=== PATIENT | female | born 1990 | race Asian ===

== ENCOUNTER 2017-11-10 00:09 | Inpatient (IN) | payer OTHER ==
[~2017-11-10] VITALS: Ht 152.4 cm; Wt 73.5 kg
[2017-11-10 00:20] VITALS: BP 120/68
[2017-11-10 01:07] LABS: ABSOLUTE BASOPHIL COUNT 0 /CUMM (0.0-0.2); ABSOLUTE EOSINOPHIL COUNT 0 /CUMM (0.0-0.7); ABSOLUTE GRANULOCYTE CT 6.9 /CUMM (1.4-6.5); ABSOLUTE LYMPH COUNT 1.5 /CUMM (1.2-3.4); ABSOLUTE MONOCYTE COUNT 0.7 /CUMM (0.10-0.60); BASOPHIL % 0.1 % (0.0-2.0); EOSINOPHIL % 0.4 % (0-5); GRANULOCYTE % 74.9 % (42.2-75.2); HEMATOCRIT 33.3 % (37-47); MEAN CORPUSCULAR HGB 32.3 PG (27.0-31.0); MEAN CORPUSCULAR HGB CONC 34.9 G/DL (33.0-37.0); MEAN CORPUSCULAR VOLUME 92.3 FL (81.0-99.0); MEAN PLATELET VOLUME 10.4 FL (7.4-10.4); PLATELET COUNT 142 /CUMM (130-400); RBC DISTRIBUTION WIDTH 12.6 % (11.5-14.5); RED BLOOD CELL CT 3.61 /CUMM (4.20-5.40); WHITE BLOOD CELL COUNT 9.2 /CUMM (4.8-10.8)
--- NOTE | 2017-11-10 02:01 | History & Physical Pre-Op ---
General Information and HPI MD Statement: I have seen and personally examined HERMES BATISTA and documented this H&P. The patient is a 27 year old F who presented with a patient stated chief complaint of lABOR [id number] Source of Information: family, old records Exam Limitations: language barrier History of Present Illness: Pt well known to ob practice presented 6 cm dilated with Funic presentation ruptrured with thick meconium FHR deep variables with UC's otherwise FHR 140's with good variability code 5 called taken back to OR after prep and instrument count. Allergies/Medications Allergies: Coded Allergies: No Known Allergies (11/10/17) Compliance With Home Meds: GOOD Past History Medical History Isolation History: Standard Surgical History Pertinent Surgical History: none Past Family/Social History Psychosocial History Smoking Status: Never Smoked Review of Systems Review of Systems Constitutional: Reports: no symptoms. Denies: chills, fever. EENTM: Denies: blurred vision, double vision, visual changes. Cardiovascular: Denies: chest pain. Respiratory: Denies: short of breath. GI: Denies: diarrhea, nausea, vomiting. Exam & Diagnostic Data Last 24 Hrs of Vital Signs/I&O vss Vital Signs Date Time Temp Pulse Resp B/P B/P Pulse O2 O2 Flow FiO2 Mean Ox Delivery Rate 11/10 0020 120/68 Intake & Output 11/10 0800 11/10 0000 11/09 1600 Intake Total Output Total Balance Patient 162 lb Weight Physical Exam General Appearance Alert, Oriented X3, Moderate Distress Skin No Rashes HEENT Atraumatic, PERRLA, EOMI, Mucous Membr. moist/pink Neck Supple Cardiovascular Regular Rate Lungs Clear to Auscultation Abdomen Normal Bowel Sounds, Soft, No Tenderness, gravid 40cm Extremities No Edema Last 24 Hrs of Labs/Andre: Laboratory Tests 11/10/17 0015: CBC w Diff NO MAN DIFF REQ, RBC 3.61 L, MCV 92.3, MCH 32.3 H, MCHC 34.9, RDW 12.6, MPV 10.4, Gran % 74.9, Lymphocytes % 16.7 L, Monocytes % 7.9, Eosinophils % 0.4, Basophils % 0.1, Absolute Granulocytes 6.9 H, Absolute Lymphocytes 1.5, Absolute Monocytes 0.7 H, Absolute Eosinophils 0, Absolute Basophils 0 Assessment/Plan Assessment/Plan: Pt well known to ob practice presented 6 cm dilated with Funic presentation ruptrured with thick meconium FHR deep variables with UC's otherwise FHR 140's with good variability code 5 called taken back to OR after prep and instrument count. As Ranked By This Provider Problem List: 1. Funic presentation 2. Attending MD Review Statement Attending Statement Attending MD Statement: examined this patient, discussed with family, discussed w/nursing
--- NOTE | 2017-11-10 02:03 | Labor & Delivery Summary ---
Delivery Summary Section: Section: primary Indication: Funic presentation Anesthesia: general Placenta: Placenta: spontanteous, normal, 3 vessel Anesthesia: general endotracheal tube Cord PH Value: 7.31 Baby's Weight: 8 lbs Apgars - 1 Min: 9 Apgars - 5 Min: 9 Additional Comments: Code 5 controlled delivery peds in attendance
[2017-11-10 09:14] LABS: ABSOLUTE BASOPHIL COUNT 0 /CUMM (0.0-0.2); ABSOLUTE EOSINOPHIL COUNT 0 /CUMM (0.0-0.7); ABSOLUTE MONOCYTE COUNT 0.5 /CUMM (0.10-0.60); BASOPHIL % 0.1 % (0.0-2.0); EOSINOPHIL % 0 % (0-5); MEAN PLATELET VOLUME 10.6 FL (7.4-10.4)
[2017-11-10 09:17] LABS: ABSOLUTE GRANULOCYTE CT 13.3 /CUMM (1.4-6.5); ABSOLUTE LYMPH COUNT 0.7 /CUMM (1.2-3.4); HEMATOCRIT 29.6 % (37-47); MEAN CORPUSCULAR HGB 32.1 PG (27.0-31.0); MEAN CORPUSCULAR HGB CONC 34.1 G/DL (33.0-37.0); MEAN CORPUSCULAR VOLUME 94.2 FL (81.0-99.0); PLATELET COUNT 133 /CUMM (130-400); RED BLOOD CELL CT 3.14 /CUMM (4.20-5.40)
--- NOTE | 2017-11-10 09:23 | PN- OBGYN ---
Surgical Brief Attending Note Brief Attending Note: POD#0 pt is resting in bed, no complaints, pain is controlled by KNIFE SETTER GRINDER MACHINE, denies nausea, vomitting , lawrence in place, clear urine PE: VSS General: NAD CV RRR lungs CTA B/L Abdomen; soft, mild tender at incision site, uterus firm, fundus at umbilicus, incision dressing blood stained, dry/intact. lochia mild Ext: venodyn boots placed, DCT (-) A/P: 27yo, s/p stat PLTCS due to funic presentation,POD#0 1. may start clear liquid diet if no nausea, vomitting 2. pain management as needed 3.RT Postop care
[2017-11-10 09:26] LABS: WHITE BLOOD CELL COUNT 14.6 /CUMM (4.8-10.8)
[2017-11-10 10:17] LABS: GRANULOCYTE % 91.2 % (42.2-75.2)
[2017-11-11 08:26] LABS: ABSOLUTE BASOPHIL COUNT 0 /CUMM (0.0-0.2); ABSOLUTE EOSINOPHIL COUNT 0 /CUMM (0.0-0.7); ABSOLUTE GRANULOCYTE CT 5.8 /CUMM (1.4-6.5); ABSOLUTE LYMPH COUNT 1.3 /CUMM (1.2-3.4); ABSOLUTE MONOCYTE COUNT 0.6 /CUMM (0.10-0.60); BASOPHIL % 0.3 % (0.0-2.0); EOSINOPHIL % 0.3 % (0-5); GRANULOCYTE % 75.3 % (42.2-75.2); MEAN CORPUSCULAR HGB CONC 34.2 G/DL (33.0-37.0); MEAN CORPUSCULAR VOLUME 93.4 FL (81.0-99.0); MEAN PLATELET VOLUME 10.2 FL (7.4-10.4); PLATELET COUNT 128 /CUMM (130-400); RBC DISTRIBUTION WIDTH 13.1 % (11.5-14.5); RED BLOOD CELL CT 2.53 /CUMM (4.20-5.40); WHITE BLOOD CELL COUNT 7.7 /CUMM (4.8-10.8)
[2017-11-11 08:32] LABS: HEMATOCRIT 23.6 % (37-47)
--- NOTE | 2017-11-11 10:06 | PN- Post Delivery/GYN ---
Subjective Subjective: feeling well Review of Systems Constitutional: Denies: chills, fever. EENTM: Denies: blurred vision, double vision, visual changes. Cardiovascular: Denies: chest pain. Respiratory: Denies: short of breath. Gastrointestinal: Denies: diarrhea, nausea, vomiting. Neurological/Psychological: Denies: anxiety, depressed. Objective Last 24 Hrs of Vital Signs/I&O vss Vital Signs Date Time Temp Pulse Resp B/P B/P Pulse O2 O2 Flow FiO2 Mean Ox Delivery Rate 11/10 1411 Room Air Room Air Physical Exam General Appearance Alert, Oriented X3, Cooperative, No Acute Distress Cardiovascular Regular Rate Lungs Clear to Auscultation Abdomen Soft, fundus firm, incision clean and dry Pelvic (FEMALE) lochia serosanganous Current Medications: Current Medications Sig/Ana Maria Start time Last Medication Dose Route Stop Time Status Admin Acetaminophen 1,000 MG Q6P PRN 11/10 0300 AC 11/10 N/A 1 UNIT IV 0145 Acetaminophen 650 MG Q4P PRN 11/10 021 AC PO Diphenhydramine HCl 50 MG Q6P PRN 11/10 021 AC IM Docusate Sodium 100 MG AT BEDTIME PRN 11/10 021 AC PO Enoxaparin Sodium 40 MG DAILY 11/10 1000 AC 11/11 SC 0911 Hydromorphone HCl 50 MG Q24H PRN 11/10 0300 DC 11/10 Sodium Chloride 45 ML IV 0331 Hydroxyzine HCl 50 MG AT BEDTIME NEED.. 11/11 0000 AC PO Ibuprofen 600 MG Q6P PRN 11/10 021 AC PO Ibuprofen 800 MG Q6P PRN 11/10 0215 AC 11/11 PO 0735 Ketorolac 30 MG Q6P PRN 11/10 0300 DC 11/10 Tromethamine IV 11/11 0259 1416 Lactated Ringer's 1,000 ML Q8H 11/10 021 DC 11/10 IV 0838 Magnesium Hydroxide 30 ML DAILY NEEDED PRN 11/10 021 AC PO Naloxone HCl 0.2 MG .[STAT] 11/10 021 AC IV Oxycodone/ 1 TAB Q4P PRN 11/10 021 AC 11/11 Acetaminophen PO 0632 Oxycodone/ 2 TAB Q4P PRN 11/10 021 AC Acetaminophen PO Oxytocin 20 UNITS Q8H 11/10 0215 DC 11/10 Lactated Ringer's 1,000 ML IV 11/10 1014 0200 Promethazine HCl 25 MG Q4P PRN 11/10 021 DC IM 11/11 021 Promethazine HCl 50 MG Q4P PRN 11/10 0215 DC IM 11/11 021 Simethicone 80 MG Q6P PRN 11/10 1245 AC 11/10 PO 1237 Last 24 Hrs of Labs/Andre: Laboratory Tests 11/11/17 0630: CBC w Diff NO MAN DIFF REQ, RBC 2.53 L, MCV 93.4, MCH 32.0 H, MCHC 34.2, RDW 13.1, MPV 10.2, Gran % 75.3 H, Lymphocytes % 16.7 L, Monocytes % 7.4, Eosinophils % 0.3, Basophils % 0.3, Absolute Granulocytes 5.8, Absolute Lymphocytes 1.3, Absolute Monocytes 0.6, Absolute Eosinophils 0, Absolute Basophils 0 11/11/17 0600: Kleihauer Cells Cancelled Assessment/Plan Assessment/Plan POD #1 VSS afebrile HCT 23.6 pt asymptomatic with no further bleeding Plan ambulate advance diet. Problem List: 1. 2. Funic presentation Attending MD Review Statement Attending Statement Attending MD Statement: examined this patient, discussed with family, discussed with nursing
--- NOTE | 2017-11-12 07:50 | Operative Report ---
Operative/Inv Procedure Report Surgery Date: 11/10/17 Name of Procedure: Primary low transverse section Pre-Operative Diagnosis: Fundic presentation Post-Operative Diagnosis: Same Estimated Blood Loss: 800 Surgeon/Outside Rigger: Maximus ROSADO,Raad Uriostegui/Sammy Flood MD Anesthesia: general endotracheal tube Specimens: placenta Condition: Good Operative Indication: Funic presentation Operative/Procedure Note Note: Prior tor the induction of general anesthesia the patient was placed in the left lateral tilt position Man catheter was placed and heart rate was noted to be 144 bpm. once general anesthesia was induced A Pfannenstiel incision was made in the skin and carried down sharply to the fascia hemostasis was achieved with electrocautery. The Fascia was incised in the midline sharply and the incision was carried out laterally sharply. The fascia was divided from the underlying rectus muscles in the superior and inferior direction sharply. The rectus muscle bundles were divided in the midline sharply. A bladder flap was created on the lower uterine segment. The lower uterine segment was entered in the midline sharply and the incision was carried out laterally bluntly. was delivered through thick meconium amnionic fluid vertex position atraumatically cord was doubly clamped and cut and the infant was handed to the pediatric attendant. The placenta was manually extracted and the interior of the uterus was wiped clean with wet laps. The uterus was externalized. The uterine incision was closed in 2 layers the first a running locking stitch the second an imbricating over the first 0 Polysorb sutures were used after checking for hemostasis the uterus was returned to its normal anatomic position the abdominal/perineal cavity was irrigated copiously once again the uterus was checked for hemostasis which was judged to be excellent. The parietal peritoneum was reapproximated in a simple running fashion with 0 Polysorb suture, subfascial planes were checked for hemostasis which was judged to be excellent. Fascia was then closed with 2 simple running sutures overlapping in the midline. Subcuticular tissues were irrigated copiously and hemostasis was achieved with electrocautery. A subcuticular Jacqueline's fascia which was placed in a simple running fashion of 2-0 Polysorb. The skin was closed with katelin. Her uterus was expressed of a small amount of blood. The only drain left at the end of the procedure was a Man catheter. Findings: Normal anatomy
--- NOTE | 2017-11-12 10:59 | PN- OBGYN ---
Surgical Brief Attending Note Brief Attending Note: pt feeling better today. pain improving. amb / void/ amie po. +flatus. +bf. no dizziness / riley / sob. afeb, v/ss nad abd soft nt nd ff inc c/d/i w/ clips sissy min lochia ext nt tr b/l le ed a/p pod 2 s/p prim c/s for funich presentation, doing well, asymptomatic anemia -start fe tid -pain mgmt -routine pop care -ant d/c home joselito
[2017-11-12] MEDS ORDERED: FERROUS SULFAT325 M2 PO (14:46)
[2017-11-12] MEDS ORDERED: IBUPROFEN800 M1 PO (14:46)
[2017-11-12] MEDS ORDERED: PERCOCET 5-3251 EACH PO (14:46)
--- NOTE | 2017-11-13 11:04 | PN- OBGYN ---
Surgical Brief Attending Note Brief Attending Note: pt feeling well. no c/o. no dizziness / riley / sob. amb / void / amie po. + br pumping. afeb, vss. abd soft nt ff, inc c/d/i w/ clips. sissy min lochia. ext nt +1 b/l le edema. pod 3 s/p c/s, doing well. anemia. pt prefers katelin to be removed pod5 when returns to for f/u. d/c instructions rev. rto 2 wks post-op care.
== END 2017-11-13 15:15 | DRG 766 ==
LOC: GNO 00:09
PROVIDERS: Obstetrics & Gynecology
PROC: 10D00Z1 Extraction of Products of Conception, Low, Open Approach (ICD-10-PCS; principal; 2017-11-10)
DX: O32.8XX0 Maternal care for other malpresentation of fetus, not applicable or unspecified (principal); O76 Abnormality in fetal heart rate and rhythm complicating labor and delivery; O90.81 Anemia of the puerperium; Z3A.41 41 weeks gestation of pregnancy; Z37.0 Single live birth
CPT/HCPCS: GNOS; 36415; 81001; 87086; 88307; J0690; J1170; J1650; J1885; J2210; J3105; J7120

== ENCOUNTER 2018-03-06 19:48 | Emergency (ER) | payer OTHER ==
[~2018-03-06 19:48] MED LIST: FERROUS SULFAT325 M2 PO; IBUPROFEN800 M1 PO; PERCOCET 5-3251 EACH PO
[2018-03-06 19:55] VITALS: BP 101/67
[2018-03-06] MEDS ORDERED: AMOXICILLIN875 M1 PO (22:31)
[2018-03-06] MEDS ORDERED: IBUPROFEN800 M1 PO (22:31)
--- NOTE | 2018-03-06 22:32 | ED THROAT/DENTAL COMPLAINT ---
History of Present Illness General Chief Complaint: Sore Throat, Dental Pain Stated Complaint: "LT JAW SWOLLEN PAINFULL FROM DENTAL WORK" Source: patient Exam Limitations: no limitations Vital Signs & Intake/Output Vital Signs & Intake/Output Vital Signs Date Time Temp Pulse Resp B/P B/P Pulse O2 O2 Flow FiO2 Mean Ox Delivery Rate 03/06 2329 98 Room Air 03/06 1955 98.4 57 16 101/67 99 Room Air ED Intake and Output 03/07 0000 03/06 1200 Intake Total 0 Output Total Balance 0 Intake, IV 0 Allergies Coded Allergies: No Known Allergies (11/10/17) Reconcile Medications Amoxicillin 875 MG TABLET 1 TAB PO BID DENTAL INFECTION Ferrous Sulfate 325 MG (65 MG IRON) TABLET.DR 325 MG PO TID ANEMIA Ibuprofen 800 MG TABLET 1 TAB PO TID PAIN Ibuprofen 800 MG TABLET 800 MG PO Q6P PRN UTERINE CRAMPING Oxycodone HCl/Acetaminophen (Percocet 5-325 MG Tablet) 5 MG-325 MG TABLET 2 TAB PO Q4P PRN PAIN SCALE 7-10 (SEVERE) Triage Note: PT TO TRIAGE C/O DENTAL PAIN, L CHEEK SWELLING S/P CROWN PLACEMENT DONE ON WEDNESDAY. Triage Nurses Notes Reviewed? yes Onset: Abrupt Duration: day(s): Timing: recent history Injury Environment: home : No Patient currently breastfeeds: Yes HPI: 27-year-old female comes into the emergency room with left upper dental pain and facial swelling. Patient had a crown placed earlier this week. Sharp throbbing pain. Continuous. No fever or vomiting. Comes in for further evaluation. (Murphy Russo) Past History Travel History Traveled to [place] past 21 day No Medical History Any Pertinent Medical History? see below for history Neurological: NONE EENT: NONE Cardiovascular: NONE Respiratory: NONE Gastrointestinal: NONE Hepatic: NONE Renal: NONE Musculoskeletal: NONE Psychiatric: NONE Endocrine: NONE Blood Disorders: NONE Cancer(s): NONE TRAINING PROFESSIONAL/Reproductive: NONE Surgical History Surgical History: none Psychosocial History What is your primary language Panamanian Tobacco Use: Never used Family History Hx Contributory? No (Murphy Russo) Review of Systems Review of Systems Constitutional: Reports: no symptoms. EENTM: Reports: see HPI. Respiratory: Reports: no symptoms. Cardiovascular: Reports: no symptoms. GI: Reports: no symptoms. Genitourinary: Reports: no symptoms. Musculoskeletal: Reports: no symptoms. Skin: Reports: no symptoms. Neurological/Psychological: Reports: no symptoms. Hematologic/Endocrine: Reports: no symptoms. Immunologic/Allergic: Reports: no symptoms. All Other Systems: Reviewed and Negative (Murphy Russo) Physical Exam Physical Exam General Appearance: well developed/nourished, no apparent distress, alert, awake Head: swelling (left face) Eyes: Bilateral: normal appearance. Nose: normal inspection Mouth/Throat: swelling left upper gumline, no abscess palpated or appreciated, tenderness with palpation to left upper molar Neck: normal inspection Cardiovascular/Respiratory: no respiratory distress Back: normal inspection Neurologic/Psych: no motor/sensory deficits, awake, alert Skin: intact, normal color Core Measures ACS in differential dx? No Sepsis Present: No Sepsis Focused Exam Completed? No (Murphy Russo) Progress Differential Diagnosis: aspirated tooth, carious tooth, epiglottitis, Ludwigs angina, meningitis, odontogenic abscess, sissy-tonsillar abscess, pharyngeal for. body, stomatitis/gingivitis, strep pharyngitis, tooth fracture Plan of Care: 03/06/2018 11:08:00 PM There is no evidence of abscess on exam however suspicion suspected. Started on oral antibiotics and referred to dentist. Return if any other concerns. (Murphy Russo) Departure Departure Disposition: HOME OR SELF CARE Condition: Stable Clinical Impression Primary Impression: Dental infection Referrals: Patient Has No Primary Care Dr (PCP/Family) Additional Instructions: Take amoxicillin and ibuprofen as prescribed. Follow-up with primary care doctor. Return if any concerns worsening symptoms. Please go over all results of today's visit with your primary care doctor. Contact your primary care doctor to let them know you were here in the emergency room. There may be nonspecific findings which may not be related to your visit today here in the emergency room but may require further evaluation and chronic monitoring by your primary care doctor. If you had a laceration today the chance of foreign body always remains. You should follow-up with your primary care doctor for recheck in 3-5 days for a wound check. If you had an x-ray done there is a chance that a fracture could have been missed on initial read and you should follow-up with your primary care doctor for repeat x-rays if symptoms persist. If your blood pressure was elevated here in the emergency room please have rechecked by [facility] primary care doctor within the next 48. If you were prescribed a narcotic here in the emergency room or any type of controlled substances you're not allowed to drive while taking this medication or operate any type of heavy machinery. Narcotics can make you feel lightheaded dizziness nausea and can cause constipation. You may need to pick up worker a stool softener. Thank you for choosing [facility] emergency room. Please return to the emergency room immediately if you have any other concerns worsening of symptoms. Departure Forms: Customer Survey General Discharge Information Prescriptions: Current Visit Scripts Ibuprofen 1 TAB PO TID #30 TAB Amoxicillin 1 TAB PO BID #20 TAB (Murphy Russo) PA/SPECIAL LOAN OFFICER Co-Sign Statement Statement: ED Attending supervision documentation- [] I saw and evaluated the patient. I have also reviewed all the pertinent lab results and diagnostic results. I agree with the findings and the plan of care as documented in the PA's/SPECIAL LOAN OFFICER's documentation. [x] I have reviewed the ED Record and agree with the PA's/SPECIAL LOAN OFFICER's documentation. [] Additions or exceptions (if any) to the PAs/SPECIAL LOAN OFFICER's note and plan are summarized below: [] (Ruddy ROSADO,Sascha Uriostegui)
== END 2018-03-06 23:35 ==
LOC: ERH 19:48
DX: K04.7 Periapical abscess without sinus (principal)